=== PATIENT | male | born 1975 | race Caucasian/White ===

== ENCOUNTER 2018-12-13 22:41 | Emergency (ER) | payer OTHER ==
[~2018-12-13] VITALS: Ht 177.8 cm; Wt 83.9 kg
[~2018-12-13 22:41] MED LIST: ACYCLOVIR 400400 M1; ADDERALL 20 MG20 MG
[2018-12-14 01:25] VITALS: BP 0/0
--- NOTE | 2018-12-14 15:05 | EKG ---
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[employer]: : 1975 Requested By: Nirali Larios Order Number: [id number] Reading MD: Joshua Talamantes Measurements Intervals [place] Rate: 117 P: 23 [place]: 146 QRS: 22 QRSD: 88 T: 14 QT: 309 QTc: 431 Interpretive Statements Sinus tachycardia Probable left atrial enlargement Probable left ventricular hypertrophy No previous ECG available for comparison Electronically Signed On 12-14-2018 15:05:38 CDT by Joshua Talamantes [email or web address] <ELECTRONICALLY SIGNED> By: Joshua Talamantes MD, [facility] 12/14/18 1505 [id number] Joshua Talamantes MD, FACC /EPI
== END 2018-12-14 01:28 | disposition left against medical advice (07) ==
LOC: M.ERS 22:41
DX: S01.81XA Laceration without foreign body of other part of head, initial encounter (principal); V89.2XXA Person injured in unspecified motor-vehicle accident, traffic, initial encounter; Y93.89 Activity, other specified; Y92.89 Other specified places as the place of occurrence of the external cause; Y99.8 Other external cause status